=== PATIENT | female | born 1950 | race Caucasian/White ===

== ENCOUNTER → 2016-08-23 | Outpatient (REF) ==
[~2016-08-23] MED LIST: PREMARIN0.45 MG PO; ZOCOR10 MG PO
== END ==
LOC: ZLAB.WCH 15:40
DX: Z01.89 Encounter for other specified special examinations (principal)

== ENCOUNTER → 2017-02-16 | Outpatient (REF) | LOC: ZLAB.WCH 14:22 | DX: Z01.89 Encounter for other specified special examinations (principal) ==

== ENCOUNTER 2017-03-05 14:26 | Outpatient (CLI) | payer MEDICARE, OTHER ==
[2017-03-05] VITALS (7 sets, daily range): BP systolic 103–130; BP diastolic 56–86; PULSE 84–103; TEMP 98.5
[~2017-03-05] VITALS: Ht 172.7 cm; Wt 62.2 kg
[2017-03-05 15:15] LABS: HEMATOCRIT 44.1 % (37.0-47.0); HEMOGLOBIN 14.6 g/dl (12.5-16.0); MEAN CELL VOLUME 93 fl (80.0-100.0); MEAN CORPUSCULAR HEMOGLOBIN 31 pg (27.0-31.0); MEAN CORPUSCULAR HGB CONC 33 g/dl (33.0-37.0); MEAN PLATELET VOLUME 8.8 fl (7.4-10.4); PLATELET COUNT 379 K/mm3 (130-400); RED BLOOD COUNT 4.74 M/mm3 (4.10-5.30); WHITE BLOOD COUNT 7.5 K/mm3 (4.8-10.8)
[2017-03-05 15:26] LABS: ADJUSTED CALCIUM 9.4 mg/dL (8.4-10.2); ALBUMIN 4.2 gm/dL (3.5-5.0); BILIRUBIN,TOTAL 0.7 mg/dL (0.0-1.0); CALCIUM 9.6 mg/dL (8.4-10.2); CREATININE, serum 0.72 mg/dL (0.52-1.25); MAGNESIUM 1.9 mg/dL (1.6-2.3); POTASSIUM 3.4 mmol/L (3.4-5.0); TOTAL PROTEIN 7.4 gm/dL (6.4-8.2)
[2017-03-05] MEDS ORDERED: VITAMIN D 1001000 IU PO (15:28)
[2017-03-05] MEDS ORDERED: ALEVE 220MG220 MG PO (15:30)
[2017-03-05] MEDS ORDERED: FLORAJEN A20 Billion PO (15:30)
== END 2017-03-05 17:59 | disposition home or self-care (01) ==
LOC: EUO 14:26
PROVIDERS: Internal Medicine
DX: A04.72 Enterocolitis due to Clostridium difficile, not specified as recurrent (principal); R19.7 Diarrhea, unspecified; E86.0 Dehydration
CPT/HCPCS: J7120

== ENCOUNTER → 2017-04-05 | Outpatient (REF) ==
[~2017-04-05] MED LIST changes: +ALEVE 220MG220 MG PO; +FLORAJEN A20 Billion PO; +VITAMIN D 1001000 IU PO
[2017-04-05 18:36] LABS: C-REACTIVE PROTEIN 2.3 mg/dL (0.0-0.9)
[2017-04-05 19:06] LABS: THYROID STIMULATING HORMONE 0.816 uIU/mL (0.465-4.680)
== END ==
LOC: ZLAB.WCH 18:12
PROVIDERS: Internal Medicine
DX: Z01.89 Encounter for other specified special examinations (principal)

== ENCOUNTER → 2017-04-06 | Outpatient (REF) | LOC: ZLAB.WCH 18:41 | DX: Z01.89 Encounter for other specified special examinations (principal) ==

== ENCOUNTER → 2017-06-05 | Outpatient (REF) | LOC: ZLAB.WCH 18:05 | DX: Z01.89 Encounter for other specified special examinations (principal) ==

== ENCOUNTER → 2017-09-26 | Outpatient (REF) ==
[2017-09-26 18:20] LABS: THYROID STIMULATING HORMONE 1.38 uIU/mL (0.465-4.680)
== END ==
LOC: ZLAB.WCH 17:18
PROVIDERS: Internal Medicine
DX: Z01.89 Encounter for other specified special examinations (principal)